=== PATIENT | female | born 1960 | race Caucasian/White ===

== ENCOUNTER 2024-02-09 10:18 | Emergency (ER) | payer OTHER, SELFPAY ==
[2024-02-09 10:34] VITALS: BP 137/67; PULSE 66; RESP 18; TEMP 36.4; O2SAT 100
--- NOTE | 2024-02-09 10:36 | ED.EXTPRO ---
HPI - Extremity Problem General Chief complaint: Extremity Problem,Nontraumatic Stated complaint: Hands swelling/can't get ring off Time Seen by Provider: 02/09/24 10:36 Source: patient Mode of arrival: ambulatory Limitations: no limitations History of Present Illness HPI Narrative: 63 y/o female presents with complaints of 'ring stuck on thumb' today. Reports bilateral hand swelling x1-2 days. 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 Has tried lotion and floss technique to remove the ring but was unsuccessful. Says bilateral ankle swelling is baseline. She denies any fevers/chills, shortness of breath, cough, or chest pain. Related Data Home Medications Medication Instructions Recorded Confirmed amlodipine 5 mg tablet 5 mg PO DAILY 02/09/24 02/09/24 atorvastatin 80 mg tablet 80 mg PO DAILY 02/09/24 02/09/24 clopidogrel 75 mg tablet 75 mg PO DAILY 02/09/24 02/09/24 ezetimibe 10 mg tablet 10 mg PO DAILY 02/09/24 02/09/24 furosemide 20 mg tablet 20 mg PO DAILY 02/09/24 02/09/24 Allergies Allergy/AdvReac Type Severity Reaction Status Date / Time iohexol Allergy Unknown Unknown Verified 02/09/24 10:45 [From contrast - CT, X-RAY] morphine Allergy Unknown Unknown Verified 02/09/24 10:45 Review of Systems Review of Systems: CONSTITUTIONAL: Denies body aches, fever, chills CARDIOVASCULAR: Denies chest pain, palpitations, or edema. RESPIRATORY: Denies cough or dyspnea. SKIN: Denies rash, itching, or wounds. MUSCULOSKELETAL: Denies back pain. Reports bilateral hand arthralgia NEUROLOGIC: Denies headache, numbness, tingling, or weakness. All systems reviewed & are unremarkable except as noted in HPI and below [facility] Past Medical History Medical History (Updated 02/09/24 @ 11:06 by Dena Mabry APRN) CAD (coronary artery disease) Surgical History Surgical History (Updated 02/09/24 @ 11:05 by Dena Mbary APRN) Hx of CABG Social History Social History (Updated 02/09/24 @ 11:05 by Dena Mabry APRN) Smoking packs per day: 0.5 Smoking cigarettes per day: 10.0 Smoking status: Current every day smoker Comments At time of signature, I have reviewed and agree with nursing past medical, surgical, social and family history unless otherwise noted. Please see nursing chart for further information. There is no relevant family history pertinent to the presenting complaint Exam Narrative: GENERAL: Well-appearing CHEST: Speaks in full sentences. No respiratory distress. HEART: Regular rate and rhythm. Normal and equal peripheral pulses. EXTREMITIES: Bilateral hands with normal strength and sensation, normal range of motion but endorses mild pain with movement of bilateral interphalangeal joints. Minimal bilateral hand edema. No ecchymosis, No point tenderness. No open wounds, skin tenting, or obvious deformity; alignment normal, pulse palpable and equal bilaterally, skin warm, dry, pink. Capillary refill less than 3 seconds. 1+ ankle/pedal edema. SKIN: Warm, dry, no rash. NEURO: Alert and oriented x3. PSYCH: Normal mood and affect Course Course Emergency Course: Patient is aware of diagnosis, understands and agrees to treatment plan. Anticipatory guidance given. Patient agrees to follow-up as directed and is aware of reasons to seek care at the emergency department. Portions of this record may have been created with voice recognition software Level of Care: Express Care Visit Vital Signs Vital signs: Vital Signs Temperature 97.6 F 02/09/24 10:34 Pulse Rate 66 02/09/24 10:34 Respiratory Rate 18 02/09/24 10:34 Blood Pressure 137/67 02/09/24 10:34 Pulse Oximetry 100 02/09/24 10:34 Oxygen Delivery Room Air 02/09/24 10:34 Temperature 97.6 F 02/09/24 10:34 Pulse Rate 66 02/09/24 10:34 Respiratory Rate 18 02/09/24 10:34 Blood Pressure 137/67 02/09/24 10:34 Pulse Oximetry
== END 2024-02-09 10:55 | disposition home or self-care (01) ==
PROVIDERS: Emergency Provider Nurse Practitioner Family; PCP Physician Assistant
DX: R22.33 Localized swelling, mass and lump, upper limb, bilateral (principal); F17.210 Nicotine dependence, cigarettes, uncomplicated; I25.10 Atherosclerotic heart disease of native coronary artery without angina pectoris
CPT/HCPCS: 99202; G0463